=== PATIENT | male | born 1975 | race Caucasian/White ===

== ENCOUNTER 2016-12-23 17:10 | Emergency (ER) | payer BC ==
[~2016-12-23] VITALS: Ht 167.6 cm; Wt 82.1 kg
[2016-12-23 18:42] LABS: HEMATOCRIT 41.2 % (38.0-50.0); MCH 27.5 PG (29.0-34.0); MCHC 31.8 G/DL (30.0-36.0); MCV 86.4 FL (86-99); MEAN PLAT.VOLUME 9.7 uM^3 (9.0-12.4); PLATELET COUNT 376 K/uL (156-360); RBC DIS.WIDTH-CV 13.5 % (11.8-14.6); RBC DIS.WIDTH-SD 42.2 % (39-53); RED BLOOD COUNT 4.77 M/uL (4.00-5.50); WHITE BLOOD COUNT 12.6 K/uL (4.1-10.2)
[2016-12-23 18:53] LABS: CHLORIDE 103 mEq/L (99-109); POTASSIUM 3.7 mEq/L (3.7-5.4); SODIUM 141 mEq/L (136-147)
[2016-12-23 18:55] LABS: GLUCOSE 110 mg/dL (70-99)
[2016-12-23 18:56] LABS: ANION GAP 10 MEQ/L (2-14)
[2016-12-23 18:59] LABS: GFR ESTIMATE (CALCULATED) > 59 mL/min/
[2016-12-23 19:00] LABS: UREA NITROGEN (BUN) 12 mg/dL (9-23)
[2016-12-23] MEDS ORDERED: PERCOCET 5/31 TABLET PO (21:51)
[2016-12-23] MEDS ORDERED: FLAGYL500 MG PO (21:55)
[2016-12-23] MEDS ORDERED: CIPRO500 MG PO (21:55)
[2016-12-23 22:18] VITALS: BP 129/94
== END 2016-12-23 22:19 | disposition home or self-care (01) ==
LOC: EME 17:10
PROVIDERS: Physician Assistant
PROC: 0D9QXZZ Drainage of Anus, External Approach (ICD-10-PCS; principal; 2016-12-23)
DX: K61.0 Anal abscess (principal)
CPT/HCPCS: 74177; 80048; 85027; 87070; 87075; 87076; 87077; 87185; 87186; 87205; 99281; 99284; J2270; J2405; J3010; J7030

== ENCOUNTER 2017-01-09 12:55 | Emergency (ER) | payer BC ==
[~2017-01-09] VITALS: Ht 167.6 cm; Wt 81.2 kg
[~2017-01-09 12:55] MED LIST: CIPRO500 MG PO; FLAGYL500 MG PO; PERCOCET 5/31 TABLET PO
[2017-01-09 14:14] LABS: CHLORIDE 106 mEq/L (99-109); POTASSIUM 3.6 mEq/L (3.7-5.4); SODIUM 140 mEq/L (136-147)
[2017-01-09 14:16] LABS: GLUCOSE 99 mg/dL (70-99); MCH 28.1 PG (29.0-34.0); MCHC 32.2 G/DL (30.0-36.0); MCV 87.2 FL (86-99); RBC DIS.WIDTH-CV 14.1 % (11.8-14.6); RBC DIS.WIDTH-SD 45.1 % (39-53); WHITE BLOOD COUNT 13.9 K/uL (4.1-10.2)
[2017-01-09 14:17] LABS: ANION GAP 8 MEQ/L (2-14)
[2017-01-09 14:18] LABS: TOTAL BILIRUBIN 1.1 mg/dL (0.0-1.0)
[2017-01-09 14:20] LABS: ALKALINE PHOSPHATASE 65 IU/L (3-129); GFR ESTIMATE (CALCULATED) > 59 mL/min/
[2017-01-09 14:21] LABS: UREA NITROGEN (BUN) 8 mg/dL (9-23)
[2017-01-09 14:26] LABS: LIPASE 4 U/L (1.0-51.0)
[2017-01-09 15:35] LABS: PLATELET CLUMPS PRESENT - PLATELET COUNTS APPEARS DECREASED; PLATELET COUNT UNABLE TO REPORT K/uL (156-360)
[2017-01-09 15:51] LABS: ADD MIUA? YES; BILIRUBIN NEGATIVE; BLOOD NEGATIVE; COLOR YELLOW ((YELLOW)); GLUCOSE (STRIP) NEGATIVE; KETONES 5; LEUKOCYTES NEGATIVE; NITRITE NEGATIVE; PROTEIN (STRIP) 30; SPECIFIC GRAVITY 1.028 (1.000-1.030); UROBILINOGEN 0.2 MG/DL (0.2-1.0)
[2017-01-09 15:58] LABS: BACTERIA NONE SEEN /HPF; EPITHELIAL CELLS NONE SEEN /HPF; MUCUS 4+ /LPF; UCUL ADDED? NO; UNCLASSIFIED CRYSTALS 2+ /HPF; WHITE BLOOD CELLS 0-5 /HPF (0-5)
[2017-01-09] MEDS ORDERED: FLAGYL500 MG PO (17:35)
[2017-01-09] MEDS ORDERED: ZOFRAN4 MG PO (17:35)
[2017-01-09] MEDS ORDERED: CIPRO500 MG PO (17:35)
[2017-01-09 18:08] VITALS: BP 115/81
== END 2017-01-09 18:10 | disposition home or self-care (01) ==
LOC: EME 12:55
DX: R11.2 Nausea with vomiting, unspecified (principal); R50.9 Fever, unspecified
CPT/HCPCS: 71020; 74177; 80053; 81003; 83605; 83690; 85027; 87040; 99281; 99284; J2405; J3010